=== PATIENT | male | born 2000 | race Caucasian/White ===

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

== ENCOUNTER 2021-01-24 14:38 | Outpatient (CLI) | payer OTHER ==
[~2021-01-24] VITALS: Ht 188 cm; Wt 98.6 kg
[2021-01-24 14:45] VITALS: BP 134/68
[2021-01-24 14:57] VITALS: BP 134/68
[2021-01-24] MEDS ORDERED: VEDOLIZUMAB 300 MG in NS 250 ML IV ONE (15:00)
[2021-01-24 16:00] VITALS: BP 137/67
== END 2021-01-24 16:00 | disposition home or self-care (01) ==
LOC: M INFU 14:38
PROVIDERS: ATTEND Internal Medicine Gastroenterology
DX: K51.90 Ulcerative colitis, unspecified, without complications (principal)
CPT/HCPCS: 96365; J3380

== ENCOUNTER → 2021-02-10 | Outpatient (CLI) | payer OTHER ==
[2021-02-10 12:45] LABS: HEMATOCRIT 42.6 % (42.0-52.0); HEMOGLOBIN 13.2 g/dl (13.5-17.5); MEAN CORPUSCULAR HEMOGLOBIN 24.8 pg (27.0-33.0); MEAN CORPUSCULAR VOLUME 80.1 fl (80.0-96.0); PLATELET COUNT, AUTOMATED 243 10^3/uL (150-450); RED BLOOD COUNT 5.32 10^6/uL (4.30-6.10); WHITE BLOOD COUNT 7.4 10^3/uL (4.0-10.0)
[2021-02-10 13:07] LABS: BLOOD UREA NITROGEN 9 MG/DL (7-18); CALCIUM LEVEL 9.7 MG/DL (8.5-10.1); CARBON DIOXIDE LEVEL 29 MEQ/L (21-32); CHLORIDE LEVEL 104 MEQ/L (98-107); CREATININE FOR GFR 0.78 MG/DL (0.70-1.30); GLUCOSE, FASTING 80 MG/DL (70-100); POTASSIUM SERUM 4.6 MEQ/L (3.5-5.1); SODIUM LEVEL 138 MEQ/L (136-145)
== END ==
LOC: M LAB 11:28
PROVIDERS: ATTEND Surgery
DX: K51.019 Ulcerative (chronic) pancolitis with unspecified complications (principal)

== ENCOUNTER → 2021-06-22 | Outpatient (CLI) | payer OTHER | LOC: M LABSMTC 09:21 | PROVIDERS: ATTEND Surgery | DX: K51.019 Ulcerative (chronic) pancolitis with unspecified complications (principal) ==

== ENCOUNTER → 2021-08-25 | Outpatient (CLI) | payer OTHER ==
[~2021-08-25] MED LIST changes: +GASTROGRAFIN SOLUTION 30ML (Q9963) As Ordered ONE
== END ==
LOC: M RAD 07:41
PROVIDERS: ATTEND Surgery
DX: K51.019 Ulcerative (chronic) pancolitis with unspecified complications (principal); Z93.3 Colostomy status
CPT/HCPCS: 74176; Q9963

== ENCOUNTER 2021-08-29 00:19 | Inpatient (IN) | payer OTHER ==
[~2021-08-29] VITALS: Ht 193 cm; Wt 76.2 kg
[~2021-08-29 00:19] MED LIST changes: -GASTROGRAFIN SOLUTION 30ML (Q9963) As Ordered ONE
[2021-08-29 01:12] LABS: BASO # 0.1 10^3/uL (0.0-0.2); BASO % 0.4 % (0.0-1.0); EOS # 0.1 10^3/uL (0.0-0.5); EOS % 0.3 % (0.0-3.0); HEMATOCRIT 43.4 % (42.0-52.0); HEMOGLOBIN 14.5 g/dl (13.5-17.5); LYMPH # 1.6 10^3/uL (1.5-5.0); LYMPH % 10.5 % (24.0-44.0); MEAN CORPUSCULAR HEMOGLOBIN 27.4 pg (27.0-33.0); MEAN CORPUSCULAR HGB CONC 33.4 g/dl (32.0-36.5); MONO # 0.8 10^3/uL (0.0-0.8); MONO % 5.1 % (2.0-8.0); NEUTROPHILS # 12.8 10^3/uL (1.5-8.5); NEUTROPHILS % 83.5 % (36.0-66.0); PLATELET COUNT, AUTOMATED 215 10^3/uL (150-450); RED BLOOD COUNT 5.29 10^6/uL (4.30-6.10); WHITE BLOOD COUNT 15.4 10^3/uL (4.0-10.0)
[2021-08-29 01:38] LABS: ALBUMIN 4.2 GM/DL (3.2-5.2); ALT/SGPT 38 U/L (12-78); BILIRUBIN,DIRECT 0.3 MG/DL (0.0-0.2); BLOOD UREA NITROGEN 9 MG/DL (7-18); CALCIUM LEVEL 9.3 MG/DL (8.5-10.1); CARBON DIOXIDE LEVEL 28 MEQ/L (21-32); CHLORIDE LEVEL 106 MEQ/L (98-107); CREATININE FOR GFR 0.97 MG/DL (0.70-1.30); GLUCOSE, FASTING 105 MG/DL (70-100); LIPASE 82 U/L (73-393); POTASSIUM SERUM 3.8 MEQ/L (3.5-5.1); SODIUM LEVEL 140 MEQ/L (136-145); TOTAL PROTEIN 7.9 GM/DL (6.4-8.2)
[2021-08-29] MEDS ORDERED: ONDANSETRON 4MG/2ML VIAL IV ONE (03:40)
[2021-08-29] MEDS ORDERED: KETOROLAC 30 MG/ML 1ML VIAL IV ONE (03:40)
[2021-08-29] MEDS ORDERED: PROMETHAZINE 25MG/ML 1ML VIAL IV ONE (05:10)
[2021-08-29] MEDS: GASTROGRAFIN SOLUTION 30ML PO SCH ×2 (05:15→05:18)
[2021-08-29] MEDS ORDERED: ISOVUE-370 76% 100ML VIAL As Ordered ONE (06:05)
[2021-08-29] MEDS ORDERED: NS 1,000 ML IV ONE (08:10)
[2021-08-29] MEDS ORDERED: HOME MED LIST COMPLETE! XX SCH (08:30)
[2021-08-29 08:46] LABS: RSV AMPLIFICATION NEGATIVE (NEGATIVE)
[2021-08-29] MEDS ORDERED: CIPROFLOXACIN 400 MG in IV 1 EA IV ONE (08:50)
[2021-08-29] MEDS ORDERED: metroNIDAZOLE 500 MG in IV 1 EA IV ONE (08:50)
[2021-08-29] MEDS ORDERED: ACETAMINOPHEN TAB 650MG DOSE (2X325MG) PO PRN (09:40)
[2021-08-29] MEDS ORDERED: ONDANSETRON 4MG TAB PO PRN (09:40)
[2021-08-29] MEDS ORDERED: MORPHINE 2 MG/ML 1ML VIAL IV PRN (09:40)
[2021-08-29] MEDS: NS 1,000 ML IV SCH ×3 (11:38→23:30)
[2021-08-29] MEDS: PANTOPRAZOLE 40MG VIAL IV SCH (11:38)
[2021-08-29] MEDS: MORPHINE 2 MG/ML 1ML VIAL IV PRN ×2 (13:27→16:40)
[2021-08-29 14:00] VITALS: BP 134/80
[2021-08-29] MEDS ORDERED: ONDANSETRON 4MG/2ML VIAL IV PRN (15:10)
[2021-08-29] MEDS: metroNIDAZOLE 500 MG in IV 1 EA IV SCH (17:55)
[2021-08-29 18:00] VITALS: BP 132/74
[2021-08-29 19:57] VITALS: BP 137/77
[2021-08-29] MEDS: CIPROFLOXACIN 400 MG in IV 1 EA IV SCH (20:08)
[2021-08-30] VITALS: BP 129/71
[2021-08-30] MEDS: metroNIDAZOLE 500 MG in IV 1 EA IV SCH ×3 (02:47→17:04)
[2021-08-30 05:05] VITALS: BP 123/68
[2021-08-30] MEDS: NS 1,000 ML IV SCH ×3 (05:53→19:54)
[2021-08-30 06:27] LABS: HEMOGLOBIN 13.3 g/dl (13.5-17.5); MEAN CORPUSCULAR HEMOGLOBIN 27.9 pg (27.0-33.0); MEAN CORPUSCULAR HGB CONC 33.3 g/dl (32.0-36.5); MEAN CORPUSCULAR VOLUME 83.9 fl (80.0-96.0); PLATELET COUNT, AUTOMATED 166 10^3/uL (150-450); RED BLOOD COUNT 4.77 10^6/uL (4.30-6.10); WHITE BLOOD COUNT 6.8 10^3/uL (4.0-10.0)
[2021-08-30 06:51] LABS: BLOOD UREA NITROGEN 8 MG/DL (7-18); CARBON DIOXIDE LEVEL 27 MEQ/L (21-32); CHLORIDE LEVEL 109 MEQ/L (98-107); CREATININE FOR GFR 0.86 MG/DL (0.70-1.30); GLUCOSE, FASTING 84 MG/DL (70-100); POTASSIUM SERUM 3.6 MEQ/L (3.5-5.1); SODIUM LEVEL 143 MEQ/L (136-145)
[2021-08-30] MEDS: CIPROFLOXACIN 400 MG in IV 1 EA IV SCH ×2 (09:47→20:58)
[2021-08-30] MEDS: PANTOPRAZOLE 40MG VIAL IV SCH (09:47)
[2021-08-30 14:00] VITALS: BP 113/60
[2021-08-30 18:00] VITALS: BP 115/62
[2021-08-30 21:40] VITALS: BP 114/62
[2021-08-31 02:00] VITALS: BP 116/70
[2021-08-31] MEDS: metroNIDAZOLE 500 MG in IV 1 EA IV SCH ×3 (02:00→18:32)
[2021-08-31] MEDS: NS 1,000 ML IV SCH ×3 (04:36→15:00)
[2021-08-31 06:00] VITALS: BP 117/70
[2021-08-31 07:24] LABS: HEMATOCRIT 37.3 % (42.0-52.0); HEMOGLOBIN 12.4 g/dl (13.5-17.5); MEAN CORPUSCULAR HEMOGLOBIN 27.9 pg (27.0-33.0); MEAN CORPUSCULAR HGB CONC 33.2 g/dl (32.0-36.5); MEAN CORPUSCULAR VOLUME 83.8 fl (80.0-96.0); PLATELET COUNT, AUTOMATED 145 10^3/uL (150-450); RED BLOOD COUNT 4.45 10^6/uL (4.30-6.10); WHITE BLOOD COUNT 6.6 10^3/uL (4.0-10.0)
[2021-08-31 07:58] LABS: BLOOD UREA NITROGEN 8 MG/DL (7-18); CALCIUM LEVEL 8.7 MG/DL (8.5-10.1); CARBON DIOXIDE LEVEL 25 MEQ/L (21-32); CHLORIDE LEVEL 110 MEQ/L (98-107); CREATININE FOR GFR 0.78 MG/DL (0.70-1.30); GLUCOSE, FASTING 75 MG/DL (70-100); POTASSIUM SERUM 3.5 MEQ/L (3.5-5.1); SODIUM LEVEL 143 MEQ/L (136-145)
[2021-08-31 09:57] VITALS: BP 114/69
[2021-08-31] MEDS: CIPROFLOXACIN 400 MG in IV 1 EA IV SCH ×2 (10:01→21:42)
[2021-08-31] MEDS: PANTOPRAZOLE 40MG VIAL IV SCH (10:01)
[2021-08-31 18:00] VITALS: BP 126/74
[2021-09-01] MEDS: metroNIDAZOLE 500 MG in IV 1 EA IV SCH (02:05)
[2021-09-01 06:04] LABS: HEMATOCRIT 37.5 % (42.0-52.0); HEMOGLOBIN 12.3 g/dl (13.5-17.5); MEAN CORPUSCULAR HGB CONC 32.8 g/dl (32.0-36.5); MEAN CORPUSCULAR VOLUME 82.4 fl (80.0-96.0); PLATELET COUNT, AUTOMATED 145 10^3/uL (150-450); RED BLOOD COUNT 4.55 10^6/uL (4.30-6.10); WHITE BLOOD COUNT 5.8 10^3/uL (4.0-10.0)
[2021-09-01 06:30] LABS: BLOOD UREA NITROGEN 8 MG/DL (7-18); CALCIUM LEVEL 8.9 MG/DL (8.5-10.1); CARBON DIOXIDE LEVEL 26 MEQ/L (21-32); CHLORIDE LEVEL 107 MEQ/L (98-107); CREATININE FOR GFR 0.67 MG/DL (0.70-1.30); GLUCOSE, FASTING 81 MG/DL (70-100); POTASSIUM SERUM 3.3 MEQ/L (3.5-5.1); SODIUM LEVEL 140 MEQ/L (136-145)
[2021-09-01] MEDS ORDERED: METR-265 PO (07:32)
[2021-09-01] MEDS ORDERED: CIPR-249 PO (07:32)
== END 2021-09-01 09:15 | disposition home or self-care (01) | DRG 247 ==
LOC: M ED 00:19 → M ED INP 09:36 → ENRESERV 11:40 → M MSPAV 14:17
PROVIDERS: ADMIT Surgery; ATTEND Surgery
DX: K56.600 Partial intestinal obstruction, unspecified as to cause (principal); Z20.822 Contact with and (suspected) exposure to COVID-19; Z90.49 Acquired absence of other specified parts of digestive tract; Z93.2 Ileostomy status; K56.7 Ileus, unspecified

== ENCOUNTER → 2021-09-26 | Outpatient (CLI) | payer OTHER ==
[~2021-09-26] MED LIST changes: +CIPR-249 PO; +METR-265 PO
== END ==
LOC: M LABSMTC 09:04
PROVIDERS: ATTEND Surgery
DX: Z01.812 Encounter for preprocedural laboratory examination (principal); Z20.822 Contact with and (suspected) exposure to COVID-19

== ENCOUNTER 2024-05-28 19:04 | Emergency (ER) | payer MEDICAID ==
[~2024-05-28] VITALS: Ht 193 cm; Wt 128.0 kg
[~2024-05-28 19:04] MED LIST changes: +ACET650T61 PO; +DICL20GE TP; +LIDO5DIS41 TOP
[2024-05-28 19:06] VITALS: BP 147/78; TEMP 99; O2SAT 100
== END 2024-05-28 21:00 | disposition left against medical advice (07) ==
LOC: M ED 19:04
DX: Z53.21 Procedure and treatment not carried out due to patient leaving prior to being seen by health care provider (principal)